=== PATIENT | male | born 1985 | race Caucasian/White ===

== ENCOUNTER 2020-02-15 | Emergency (ER) | payer SELFPAY ==
[~2020-02-15] VITALS: Ht 185.4 cm; Wt 117.9 kg
[2020-02-15 00:09] VITALS: BP 156/101
[2020-02-15] MEDS ORDERED: AUGMENTIN 875-1 EAC1 ORAL (00:24)
[2020-02-15] MEDS ORDERED: CIPRODEX OTIC7.5 M1 LEFT EAR (00:24)
[2020-02-15] MEDS ORDERED: IBUPROFEN600 M1 ORAL (00:25)
--- NOTE | 2020-02-15 00:25 | Emergency Room Report ---
History of Present Illness General Chief Complaint: Earache Source: Patient Present Illness HPI Is a 35-year-old male with no past medical history. He presents with chief complaint of left ear pain. Onset for last for 5 days but worsened tonight. Initially was 3 out of 10 but now 7 out of 10. Throbbing in nature. Denies any fever chills but denies any nausea or vomiting. No trauma. Has been using eardrops without much relief. Allergies: Coded Allergies: No Known Allergies (Unverified , 02/15/20) COVID-19 Screening Contact w/high risk pt: No Experienced COVID-19 symptoms?: No COVID-19 Testing performed GANG [employer]PER[employer]OR: No Patient History Past Medical History: none, see triage record, old chart reviewed Past Surgical History: none Pertinent Family History: none Social History: Denies: smoking Immunizations: other Reviewed Nursing Documentation: PMH: Agreed; PSxH: Agreed Nursing Documentation-PMH Hx Asthma: Yes Review of Systems Eye: Denies: eye pain, blurred vision ENT: Reports: ear pain; Denies: nose congestion, throat swelling Respiratory: Denies: cough, shortness of breath Cardiovascular: Denies: chest pain, palpitations Gastrointestinal: Denies: abdominal pain, diarrhea, nausea, vomiting Musculoskeletal: Denies: back pain, joint pain Skin: Denies: rash Neurological: Denies: headache, numbness Endocrine: Denies: increased thirst, increased urine Hematologic/Lymphatic: Denies: easy bruising All Other Systems: negative except mentioned in HPI Physical Exam Vital Signs Date Time Temp Pulse Resp B/P (MAP) Pulse Ox O2 Delivery O2 Flow Rate FiO2 02/15/20 00:03 98.8 94 16 156/101 (119) 99 Room Air Vitals with high blood pressure Sp02 EP Interpretation: reviewed, normal General Appearance: well appearing, no apparent distress, alert Head: normocephalic, atraumatic Eyes: bilateral eye PERRL, bilateral eye EOMI ENT: hearing grossly normal, normal pharynx, other - Right ear is unremarkable. Left ear: Canal show edema and erythema. There is wet wax in the ear. After removing the wax, TM is erythematous and bulging. Neck: full range of motion, supple, no meningismus Respiratory: chest non-tender, lungs clear, normal breath sounds Cardiovascular #1: regular rate, rhythm, no murmur Gastrointestinal: normal bowel sounds, non tender, no mass, no organomegaly, no bruit, non-distended Musculoskeletal: back normal, normal range of motion, gait/station normal Psychiatric: mood/affect normal Medical Decision Making Diagnostic Impression: Primary Impression: Left otitis media Qualified Codes: H66.92 - Otitis media, unspecified, left ear Additional Impression: Left otitis externa Qualified Codes: H60.502 - Unspecified acute noninfective otitis externa, left ear ER Course Patient presents with left ear pain. He has mostly otitis media but also otitis externa. I suspect this is from the drops he is been using. No trauma. No perforation. Will discharge home. Dose of antibiotics given here. Last Vital Signs Date Time Temp Pulse Resp B/P (MAP) Pulse Ox O2 Delivery O2 Flow Rate FiO2 02/15/20 00:09 98.8 94 16 156/101 99 Room Air Status: improved Disposition: HOME, SELF-CARE Condition: Stable Scripts Ibuprofen* (MOTRIN*) 600 Mg Tablet 600 MG ORAL Q6H PRN for For Pain, #30 TAB 0 Refills Prov: Taurus Ball MD 02/15/20 Ciprofloxacin Hcl/Dexameth (CIPRODEX OTIC SUSPENSION) 7.5 Ml Drops.susp 4 DROP LEFT EAR TWICE A DAY, #7.5 ML Prov: Taurus Ball MD 02/15/20 Amoxicillin/Potassium Clav 875-125* (AUGMENTIN 875-125 TABLET*) 1 Each Tablet 1 TAB ORAL TWICE A DAY, #14 TAB Prov: Taurus Ball MD 02/15/20 Referrals: NOT CHOSEN IPA/MD,REFERRING (PCP) Patient Instructions: Otitis Media, Adult, [id number], Otitis Externa, Easy- to-Read Additional Instructions: Follow-up with your doctor in 7 days for recheck. Return if symptoms worsen. Taurus Ball MD Feb 15, 2020 00:25
[2020-02-15 00:30] VITALS: BP 146/88
[2020-02-15] MEDS ORDERED: Augmentin 875mg Tab ORAL ONE (00:30)
== END 2020-02-15 00:30 | disposition home or self-care (01) ==
LOC: EMR 00:14
DX: H66.92 Otitis media, unspecified, left ear (principal); H60.502 Unspecified acute noninfective otitis externa, left ear
CPT/HCPCS: 99281